=== PATIENT | female | born 1985 | race Caucasian/White ===

== ENCOUNTER 2016-11-14 13:04 | Inpatient (IN) | payer MEDICAID, OTHER ==
[~2016-11-14] VITALS: Ht 154.9 cm; Wt 58.1 kg
[~2016-11-14 13:04] MED LIST: ALBU8HFA IH; LURA40 PO
[2016-11-14] MEDS ORDERED: AMOX1TAB15 PO (13:54)
[2016-11-14 14:16] LABS: BASOPHILS % (AUTO) 0.2 % (0.0-2.0); EOSINOPHILS % (AUTO) 2.8 % (1.0-6.0); HEMATOCRIT 36.8 % (36-46); HEMOGLOBIN 12.6 g/dL (12.0-16.0); LYMPHOCYTES % (AUTO) 25.6 % (22.0-44.0); MEAN CORPUSCULAR HEMOGLOBIN 29.9 pg (26.0-34.0); MEAN CORPUSCULAR HGB CONC 34.3 G/dL (31.0-37.0); MEAN CORPUSCULAR VOLUME 87 fL (80-100); MONOCYTES # (AUTO) 0.8 K/uL (0.1-1.0); MONOCYTES % (AUTO) 9.8 % (2.0-9.0); NEUTROPHILS # (AUTO) 4.7 K/uL (1.8-7.7); NEUTROPHILS % (AUTO) 61.6 % (40.0-70.0); PLATELET COUNT (AUTO) 171 K/uL (150-450); RED BLOOD CELL COUNT(AUTO) 4.22 MIL/uL (4.00-5.20); RED CELL DISTRIBUTION WIDTH 13.2 % (11.5-14.5); WHITE BLOOD COUNT (AUTO) 7.7 K/uL (4.5-11.0)
[2016-11-14 14:22] LABS: ANION GAP 9 mmol/L (8-16); CALCIUM, TOTAL 8.9 mg/dL (8.8-10.5); CARBON DIOXIDE 29 mmol/L (22-29); CHLORIDE 105 mmol/L (98-107); CREATININE 0.74 mg/dL (0.60-1.30); GLOMERULAR FILTR. RATE CALC > 60 mL/min (>60); POTASSIUM 3.5 mmol/L (3.5-5.1); SODIUM SERUM 143 mmol/L (136-145); UREA NITROGEN, BLOOD 10 mg/dL (7-18)
[2016-11-14 14:28] LABS: ALANINE AMINOTRANSFERASE 28 U/L (12-78); ALBUMIN 3.8 g/dL (3.4-5.0); ASPARTATE AMINOTRANSFERASE 23 U/L (15-37); BILIRUBIN,TOTAL 0.2 mg/dL (0.1-1.0); TOTAL PROTEIN, SERUM 7.2 g/dL (6.4-8.2)
[2016-11-14] MEDS ORDERED: ZOLPIDEM TARTRATE 10 MG TABLET PO PRN (18:00)
[2016-11-14] MEDS ORDERED: HALOPERIDOL 5 MG TABLET PO PRN (18:00)
[2016-11-14] MEDS ORDERED: LORazepam 2 MG TABLET PO PRN (18:00)
[2016-11-14 18:28] LABS: CHOL/HDL RATIO 2.5 (3.9-5.7)
[2016-11-14] MEDS ORDERED: HALOPERIDOL LACTATE 5 MG/ML VIAL IM ONE (22:30)
[2016-11-14] MEDS ORDERED: LORazepam 2 MG/ML VIAL IM ONE (22:30)
[2016-11-14] MEDS ORDERED: DiphenhydrAMINE HCL 50 MG/ML VIAL IM ONE ×2 (22:30)
[2016-11-15 16:30] VITALS: BP 150/94
[2016-11-15 17:15] VITALS: BP 122/76
[2016-11-15] MEDS ORDERED: ALBUTEROL SULFATE HFA 90 MCG/PUFF 8 GM INHALER IH PRN (17:30)
[2016-11-15] MEDS ORDERED: PNEUMOCOCCAL VACCINE POLYVALENT 0.5 ML VIAL [PPSV23] IM ONE (18:00)
[2016-11-16 07:09] VITALS: BP 125/68
[2016-11-16 08:07] VITALS: BP 129/84
[2016-11-16 16:16] VITALS: BP 112/65
[2016-11-16] MEDS: OLANZapine 7.5 MG TABLET PO SCH (20:13)
[2016-11-17 06:40] VITALS: BP 128/74
[2016-11-17 08:41] VITALS: BP 128/72
[2016-11-17] MEDS: DIVALPROEX SODIUM 500 MG DR TABLET PO SCH ×2 (08:41→16:02)
[2016-11-17 16:00] VITALS: BP 116/73
[2016-11-17] MEDS: OLANZapine 7.5 MG TABLET PO SCH (20:11)
[2016-11-18 06:40] VITALS: BP 119/80
[2016-11-18 08:03] VITALS: BP 125/78
[2016-11-18] MEDS ORDERED: DIVA500T35 PO (08:26)
[2016-11-18] MEDS ORDERED: OLAN7.5T2 PO (08:26)
[2016-11-18] MEDS: DIVALPROEX SODIUM 500 MG DR TABLET PO SCH (08:50)
== END 2016-11-18 11:55 | disposition home or self-care (01) | DRG 750 ==
LOC: EMS 13:06 → B3A 11-15 14:59
PROVIDERS: ADMIT Psychiatry & Neurology Psychiatry; ATTEND Psychiatry & Neurology Psychiatry
DX: F25.9 Schizoaffective disorder, unspecified (principal); J45.909 Unspecified asthma, uncomplicated; K02.9 Dental caries, unspecified; Z79.899 Other long term (current) drug therapy; Z28.21 Immunization not carried out because of patient refusal
CPT/HCPCS: 87081; 96372; 99285; G0480; J1200; J1630; J2060

== ENCOUNTER 2016-11-24 23:30 | Emergency (ER) | payer MEDICAID, OTHER ==
[~2016-11-24] VITALS: Ht 154.9 cm; Wt 59.0 kg
[~2016-11-24 23:30] MED LIST changes: -ALBU8HFA IH; +DIVA500T35 PO; -LURA40 PO; +OLAN7.5T2 PO
[2016-11-25 00:02] LABS: BASOPHILS # (AUTO) 0.02 K/uL (0.00-0.20); BASOPHILS % (AUTO) 0.2 % (0.0-2.0); EOSINOPHILS % (AUTO) 2.45 % (1.0-6.0); HEMATOCRIT 35.8 % (36-46); HEMOGLOBIN 12.1 g/dL (12.0-16.0); LYMPHOCYTES # (AUTO) 1.8 K/uL (1.0-4.8); LYMPHOCYTES % (AUTO) 15.1 % (22.0-44.0); MEAN CORPUSCULAR HGB CONC 33.7 G/dL (31.0-37.0); MEAN CORPUSCULAR VOLUME 89 fL (80-100); MONOCYTES # (AUTO) 0.8 K/uL (0.1-1.0); MONOCYTES % (AUTO) 6.5 % (2.0-9.0); NEUTROPHILS # (AUTO) 9.2 K/uL (1.8-7.7); NEUTROPHILS % (AUTO) 75.8 % (40.0-70.0); PLATELET COUNT (AUTO) 145 K/uL (150-450); RED BLOOD CELL COUNT(AUTO) 4.02 MIL/uL (4.00-5.20); RED CELL DISTRIBUTION WIDTH 13.2 % (11.5-14.5); WHITE BLOOD COUNT (AUTO) 12.2 K/uL (4.5-11.0)
[2016-11-25 00:11] LABS: ANION GAP 11 mmol/L (8-16); CALCIUM, TOTAL 8.7 mg/dL (8.8-10.5); CARBON DIOXIDE 26 mmol/L (22-29); CHLORIDE 106 mmol/L (98-107); CREATININE 0.81 mg/dL (0.60-1.30); GLOMERULAR FILTR. RATE CALC > 60 mL/min (>60); POTASSIUM 3.8 mmol/L (3.5-5.1); SODIUM SERUM 143 mmol/L (136-145); UREA NITROGEN, BLOOD 8 mg/dL (7-18)
[2016-11-25 00:17] LABS: ALANINE AMINOTRANSFERASE 21 U/L (12-78); ALBUMIN 3.5 g/dL (3.4-5.0); ASPARTATE AMINOTRANSFERASE 19 U/L (15-37); BILIRUBIN,TOTAL 0.2 mg/dL (0.1-1.0); TOTAL PROTEIN, SERUM 7.5 g/dL (6.4-8.2)
[2016-11-25 08:48] VITALS: BP 118/68
[2016-11-25] MEDS ORDERED: ALBU0.212 IH (17:24)
== END 2016-11-25 09:00 | disposition home or self-care (01) ==
LOC: EMS 23:32
DX: F25.9 Schizoaffective disorder, unspecified (principal); J40 Bronchitis, not specified as acute or chronic
CPT/HCPCS: 36415; 71010; 80053; 80307; 84703; 85025; 99285; G0480

== ENCOUNTER 2017-12-19 15:03 | Inpatient (IN) | payer MEDICAID, OTHER ==
[~2017-12-19] VITALS: Ht 154.9 cm; Wt 65.5 kg
[~2017-12-19 15:03] MED LIST changes: -DIVA500T35 PO
[2017-12-19] MEDS ORDERED: LITH300C3 PO (15:14)
[2017-12-19] MEDS ORDERED: RISP.5 PO (15:14)
[2017-12-19] MEDS ORDERED: KETOROLAC TROMETHAMINE 30 MG/ML VIAL IVP ONE (15:45)
[2017-12-19] MEDS ORDERED: METOCLOPRAMIDE HCL 5 MG/ML 2 ML VIAL IVP ONE (15:45)
[2017-12-19] MEDS ORDERED: DiphenhydrAMINE HCL 50 MG/ML VIAL IVP ONE (15:45)
[2017-12-19] MEDS ORDERED: SODIUM CHLORIDE 0.9% 1,000 ML IV ONE (15:45)
[2017-12-19] MEDS ORDERED: OLANZapine 5 MG TABLET PO ONE (17:45)
[2017-12-19] MEDS ORDERED: OLAN10TA3 PO (17:49)
[2017-12-19 18:48] LABS: BASOPHILS % (AUTO) 0.6 % (0.0-2.0); EOSINOPHILS % (AUTO) 1.3 % (1.0-6.0); HEMATOCRIT 36.1 % (36-46); HEMOGLOBIN 12.3 g/dL (12.0-16.0); LYMPHOCYTES # (AUTO) 2.1 K/uL (1.0-4.8); LYMPHOCYTES % (AUTO) 25.7 % (22.0-44.0); MEAN CORPUSCULAR HEMOGLOBIN 29.4 pg (26.0-34.0); MEAN CORPUSCULAR VOLUME 86 fL (80-100); MONOCYTES # (AUTO) 0.6 K/uL (0.1-1.0); MONOCYTES % (AUTO) 6.8 % (2.0-9.0); NEUTROPHILS # (AUTO) 5.5 K/uL (1.8-7.7); NEUTROPHILS % (AUTO) 65.6 % (40.0-70.0); PLATELET COUNT (AUTO) 194 K/uL (150-450); RED BLOOD CELL COUNT(AUTO) 4.18 MIL/uL (4.00-5.20); RED CELL DISTRIBUTION WIDTH 13.1 % (11.5-14.5)
[2017-12-19 19:29] LABS: ANION GAP 10 mmol/L (8-16); CALCIUM, TOTAL 8.9 mg/dL (8.8-10.5); CARBON DIOXIDE 25 mmol/L (22-29); CHLORIDE 106 mmol/L (98-107); CREATININE 0.85 mg/dL (0.60-1.30); GLOMERULAR FILTR. RATE CALC > 60 mL/min (>60); GLUCOSE,RANDOM 101 mg/dL (70-110); POTASSIUM 3.4 mmol/L (3.5-5.1); SODIUM SERUM 141 mmol/L (136-145); UREA NITROGEN, BLOOD 5 mg/dL (7-18)
[2017-12-19 19:34] LABS: ALANINE AMINOTRANSFERASE 21 U/L (12-78); ALBUMIN 3.8 g/dL (3.4-5.0); ALKALINE PHOSPHATASE 49 U/L (46-116); ASPARTATE AMINOTRANSFERASE 18 U/L (15-37); BILIRUBIN,TOTAL 0.3 mg/dL (0.1-1.0); TOTAL PROTEIN, SERUM 7.3 g/dL (6.4-8.2)
[2017-12-19 20:35] VITALS: BP 130/85
[2017-12-19] MEDS ORDERED: BENZOCAINE/MENTHOL LOZENGE MM PRN (21:00)
[2017-12-19] MEDS ORDERED: ALBUTEROL SULFATE HFA 90 MCG/PUFF 8 GM INHALER IH PRN (21:00)
[2017-12-19] MEDS ORDERED: BACITRACIN 28.4 GM OINTMENT TP PRN (21:00)
[2017-12-19] MEDS ORDERED: ONDANSETRON HCL 4 MG TABLET PO PRN (21:00)
[2017-12-19] MEDS ORDERED: MAG HYDROX/AL HYDROX/SIMETH ES 30 ML SUSPENSION UDCUP PO PRN (21:00)
[2017-12-19] MEDS ORDERED: POTASSIUM CHLORIDE 20 MEQ ER TABLET PO ONE (21:00)
[2017-12-19] MEDS ORDERED: LOPERAMIDE HCL 2 MG CAPSULE PO PRN (21:00)
[2017-12-19] MEDS ORDERED: ACETAMINOPHEN 325 MG TABLET PO PRN (21:00)
[2017-12-19] MEDS ORDERED: MAGNESIUM HYDROXIDE SUSPENSION 30 ML UDCUP PO PRN (21:00)
[2017-12-19] MEDS ORDERED: CloNIDine HCL 0.1 MG TABLET PO PRN (21:00)
[2017-12-19] MEDS: ZOLPIDEM TARTRATE 10 MG TABLET PO PRN (21:17)
[2017-12-20 06:50] VITALS: BP 136/91
[2017-12-20 08:21] LABS: CHOL/HDL RATIO 3.1 (3.9-5.7); POTASSIUM 3.5 mmol/L (3.5-5.1)
[2017-12-20 08:26] VITALS: BP 126/83
[2017-12-20] MEDS ORDERED: OMEPRAZOLE 20 MG CAPSULE PO SCH (09:00)
[2017-12-20] MEDS ORDERED: DOCUSATE SODIUM 100 MG CAPSULE PO PRN (09:00)
[2017-12-20] MEDS ORDERED: DOCUSATE SODIUM 100 MG CAPSULE PO SCH (09:00)
[2017-12-20] MEDS: HALOPERIDOL 5 MG TABLET PO PRN ×2 (09:29→16:37)
[2017-12-20] MEDS: LORazepam 2 MG TABLET PO PRN ×2 (09:29→16:37)
[2017-12-20 16:11] VITALS: BP 112/76
[2017-12-20] MEDS: ZOLPIDEM TARTRATE 10 MG TABLET PO PRN (20:46)
[2017-12-20] MEDS: OLANZapine 10 MG TABLET PO SCH (20:47)
[2017-12-21 06:45] VITALS: BP 126/88
[2017-12-21 08:54] VITALS: BP 125/76
[2017-12-21] MEDS: IBUPROFEN 600 MG TABLET PO PRN (09:10)
[2017-12-21] MEDS: LITHIUM CARBONATE 300 MG CAPSULE PO SCH ×2 (09:11→17:15)
[2017-12-21] MEDS: LORazepam 2 MG TABLET PO PRN (15:16)
[2017-12-21 16:18] VITALS: BP 131/70
[2017-12-21] MEDS: OLANZapine 10 MG TABLET PO SCH (21:05)
[2017-12-22 06:51] VITALS: BP 109/72
[2017-12-22 08:15] VITALS: BP 130/76
[2017-12-22] MEDS: LITHIUM CARBONATE 300 MG CAPSULE PO SCH ×2 (08:16→16:49)
[2017-12-22] MEDS: LORazepam 2 MG TABLET PO PRN (08:19)
[2017-12-22 16:00] VITALS: BP 123/83
[2017-12-22] MEDS: OLANZapine 10 MG TABLET PO SCH (20:53)
[2017-12-23] MEDS ORDERED: PNEUMOCOCCAL VACCINE POLYVALENT 0.5 ML VIAL [PPSV23] IM ONE (07:30)
[2017-12-23 08:21] VITALS: BP 117/69
[2017-12-23] MEDS: LITHIUM CARBONATE 300 MG CAPSULE PO SCH ×2 (08:57→16:51)
[2017-12-23] MEDS: LORazepam 2 MG TABLET PO PRN ×2 (09:58→16:51)
[2017-12-23 16:26] VITALS: BP 121/76
[2017-12-23] MEDS: HALOPERIDOL 5 MG TABLET PO PRN (16:51)
[2017-12-23] MEDS: OLANZapine 10 MG TABLET PO SCH (20:34)
[2017-12-23] MEDS: ZOLPIDEM TARTRATE 10 MG TABLET PO PRN (21:41)
[2017-12-24] MEDS: LITHIUM CARBONATE 300 MG CAPSULE PO SCH ×2 (08:26→16:53)
[2017-12-24] MEDS: LORazepam 2 MG TABLET PO PRN ×2 (10:24→16:53)
[2017-12-24 16:12] VITALS: BP 122/86
[2017-12-24] MEDS: HALOPERIDOL 5 MG TABLET PO PRN (16:53)
[2017-12-24] MEDS: OLANZapine 10 MG TABLET PO SCH (20:38)
[2017-12-24] MEDS: ZOLPIDEM TARTRATE 10 MG TABLET PO PRN (21:30)
[2017-12-25 05:50] VITALS: BP 113/70
[2017-12-25 08:15] VITALS: BP 124/83
[2017-12-25] MEDS: LITHIUM CARBONATE 300 MG CAPSULE PO SCH ×2 (08:29→16:43)
[2017-12-25 16:20] VITALS: BP 133/74
[2017-12-25] MEDS: OLANZapine 10 MG TABLET PO SCH (20:46)
[2017-12-25] MEDS: ZOLPIDEM TARTRATE 10 MG TABLET PO PRN (20:46)
[2017-12-26 08:15] VITALS: BP 134/79
[2017-12-26] MEDS: LORazepam 2 MG TABLET PO PRN (08:27)
[2017-12-26] MEDS: LITHIUM CARBONATE 300 MG CAPSULE PO SCH ×2 (08:27→16:11)
[2017-12-26 16:09] VITALS: BP 109/66
[2017-12-26] MEDS: OLANZapine 10 MG TABLET PO SCH (20:06)
[2017-12-27 06:51] VITALS: BP 113/71
[2017-12-27 08:39] VITALS: BP 143/89
[2017-12-27] MEDS: LITHIUM CARBONATE 300 MG CAPSULE PO SCH ×2 (08:51→16:43)
[2017-12-27] MEDS: IBUPROFEN 600 MG TABLET PO PRN ×2 (10:30→12:22)
[2017-12-27 16:11] VITALS: BP 132/80
[2017-12-27] MEDS: OLANZapine 10 MG TABLET PO SCH (20:41)
[2017-12-28 00:10] VITALS: BP 122/89
[2017-12-28] MEDS: LORazepam 2 MG TABLET PO PRN (00:38)
[2017-12-28] MEDS: ZOLPIDEM TARTRATE 10 MG TABLET PO PRN (00:38)
[2017-12-28] MEDS: LITHIUM CARBONATE 300 MG CAPSULE PO SCH (08:25)
[2017-12-28 08:27] VITALS: BP 138/71
== END 2017-12-28 12:33 | disposition home or self-care (01) | DRG 750 ==
LOC: EMS 15:04 → B2S 18:51 → B3A 20:12
PROVIDERS: ADMIT Psychiatry & Neurology Psychiatry; ATTEND Psychiatry & Neurology Psychiatry
DX: F25.0 Schizoaffective disorder, bipolar type (principal); R45.851 Suicidal ideations; F17.210 Nicotine dependence, cigarettes, uncomplicated; G47.00 Insomnia, unspecified; I10 Essential (primary) hypertension; J45.909 Unspecified asthma, uncomplicated; G43.909 Migraine, unspecified, not intractable, without status migrainosus; K59.00 Constipation, unspecified; R73.9 Hyperglycemia, unspecified
CPT/HCPCS: 84132; 90686; 90732; 96361; 96374; 96375; 99285; G0480; J1200; J1885; J2765; J7030

== ENCOUNTER 2018-01-30 23:43 | Inpatient (IN) | payer MEDICAID ==
[~2018-01-30] VITALS: Ht 154.9 cm; Wt 65.5 kg
[~2018-01-30 23:43] MED LIST changes: +LITH300C3 PO; +OLAN10TA3 PO; -OLAN7.5T2 PO
[2018-01-31 01:09] VITALS: BP 122/91
[2018-01-31] MEDS ORDERED: RISP.5 PO (01:09)
[2018-01-31] MEDS ORDERED: HALOPERIDOL 5 MG TABLET PO PRN (01:30)
[2018-01-31] MEDS ORDERED: ZOLPIDEM TARTRATE 10 MG TABLET PO PRN (01:30)
[2018-01-31 02:26] VITALS: BP 134/99
[2018-01-31 08:05] VITALS: BP 121/69
[2018-01-31] MEDS ORDERED: IBUPROFEN 600 MG TABLET PO PRN (08:15)
[2018-01-31] MEDS ORDERED: BACITRACIN 28.4 GM OINTMENT TP PRN (08:15)
[2018-01-31] MEDS ORDERED: MAGNESIUM HYDROXIDE SUSPENSION 30 ML UDCUP PO PRN (08:15)
[2018-01-31] MEDS ORDERED: ONDANSETRON HCL 4 MG TABLET PO PRN (08:15)
[2018-01-31] MEDS ORDERED: MAG HYDROX/AL HYDROX/SIMETH ES 30 ML SUSPENSION UDCUP PO PRN (08:15)
[2018-01-31] MEDS ORDERED: ACETAMINOPHEN 325 MG TABLET PO PRN (08:15)
[2018-01-31] MEDS ORDERED: LOPERAMIDE HCL 2 MG CAPSULE PO PRN (08:15)
[2018-01-31] MEDS ORDERED: CloNIDine HCL 0.1 MG TABLET PO PRN (08:15)
[2018-01-31] MEDS ORDERED: ALBUTEROL SULFATE HFA 90 MCG/PUFF 8 GM INHALER IH PRN (08:15)
[2018-01-31] MEDS ORDERED: BENZOCAINE/MENTHOL LOZENGE MM PRN (08:15)
[2018-01-31] MEDS ORDERED: PETROLATUM,WHITE 71 GM JELLY TP PRN (08:15)
[2018-01-31 08:50] LABS: HEMOGLOBIN 13.6 g/dL (12.0-16.0); LYMPHOCYTES # (AUTO) 2.2 K/uL (1.0-4.8); LYMPHOCYTES % (AUTO) 26.2 % (22.0-44.0); MEAN CORPUSCULAR HEMOGLOBIN 30.5 pg (26.0-34.0); MEAN CORPUSCULAR HGB CONC 35.8 G/dL (31.0-37.0); MEAN CORPUSCULAR VOLUME 85 fL (80-100); MONOCYTES # (AUTO) 0.5 K/uL (0.1-1.0); MONOCYTES % (AUTO) 6.2 % (2.0-9.0); NEUTROPHILS # (AUTO) 5.4 K/uL (1.8-7.7); NEUTROPHILS % (AUTO) 63.6 % (40.0-70.0); PLATELET COUNT (AUTO) 258 K/uL (150-450); RED BLOOD CELL COUNT(AUTO) 4.47 MIL/uL (4.00-5.20); RED CELL DISTRIBUTION WIDTH 13.1 % (11.5-14.5)
[2018-01-31 09:01] LABS: HEMOGLOBIN A1C 5.2 % (4.5-6.2)
[2018-01-31] MEDS: OMEPRAZOLE 20 MG CAPSULE PO SCH (09:39)
[2018-01-31] MEDS: LORazepam 2 MG TABLET PO PRN ×2 (09:39→17:11)
[2018-01-31] MEDS: DOCUSATE SODIUM 100 MG CAPSULE PO SCH (09:39)
[2018-01-31 10:16] LABS: ALANINE AMINOTRANSFERASE 35 U/L (12-78); ALBUMIN 4.2 g/dL (3.4-5.0); ALKALINE PHOSPHATASE 64 U/L (46-116); ANION GAP 11 mmol/L (8-16); ASPARTATE AMINOTRANSFERASE 23 U/L (15-37); BILIRUBIN,TOTAL 0.4 mg/dL (0.1-1.0); CALCIUM, TOTAL 8.8 mg/dL (8.8-10.5); CARBON DIOXIDE 27 mmol/L (22-29); CHLORIDE 102 mmol/L (98-107); CHOL/HDL RATIO 3.1 (3.9-5.7); CHOLESTEROL 170 mg/dL (131-200); CREATININE 0.86 mg/dL (0.60-1.30); FREE T4 (FREE THYROXINE) 1.07 ng/dL (0.76-1.46); GLOMERULAR FILTR. RATE CALC > 60 mL/min (>60); GLUCOSE,RANDOM 106 mg/dL (70-110); HCG,QUANTITATIVE < 1 mIU/mL (0-6); HDL CHOLESTEROL 54 mg/dL (40-60); LDL CHOL (CALC.) 97 mg/dL (0-130); POTASSIUM 3.3 mmol/L (3.5-5.1); SODIUM SERUM 140 mmol/L (136-145); THYROID STIMULATING HORMONE 2.58 uIU/mL (0.36-3.74); TOTAL PROTEIN, SERUM 8.1 g/dL (6.4-8.2); TRIGLYCERIDES 93 mg/dL (15-150)
[2018-01-31 10:23] LABS: UREA NITROGEN, BLOOD 9 mg/dL (7-18)
[2018-01-31] MEDS ORDERED: POTASSIUM CHLORIDE 20 MEQ ER TABLET PO ONE (10:30)
[2018-01-31 16:38] VITALS: BP 108/76
[2018-01-31] MEDS: OLANZapine 7.5 MG TABLET PO SCH (21:31)
[2018-02-01 06:22] VITALS: BP 120/73
[2018-02-01] MEDS: LORazepam 2 MG TABLET PO PRN (08:49)
[2018-02-01] MEDS: LITHIUM CARBONATE 300 MG CAPSULE PO SCH ×2 (08:49→16:40)
[2018-02-01] MEDS: OMEPRAZOLE 20 MG CAPSULE PO SCH (08:49)
[2018-02-01] MEDS: DOCUSATE SODIUM 100 MG CAPSULE PO SCH (08:49)
[2018-02-01 08:58] LABS: ANION GAP 8 mmol/L (8-16); CALCIUM, TOTAL 8.4 mg/dL (8.8-10.5); CARBON DIOXIDE 29 mmol/L (22-29); CHLORIDE 103 mmol/L (98-107); CREATININE 0.83 mg/dL (0.60-1.30); GLOMERULAR FILTR. RATE CALC > 60 mL/min (>60); GLUCOSE,RANDOM 88 mg/dL (70-110); POTASSIUM 3.8 mmol/L (3.5-5.1); SODIUM SERUM 140 mmol/L (136-145); UREA NITROGEN, BLOOD 11 mg/dL (7-18)
[2018-02-01 17:42] VITALS: BP 107/77
[2018-02-01] MEDS: OLANZapine 7.5 MG TABLET PO SCH (21:01)
[2018-02-02] MEDS: DOCUSATE SODIUM 100 MG CAPSULE PO SCH (08:10)
[2018-02-02] MEDS: LITHIUM CARBONATE 300 MG CAPSULE PO SCH ×2 (08:10→16:10)
[2018-02-02] MEDS: OMEPRAZOLE 20 MG CAPSULE PO SCH (08:14)
[2018-02-02] MEDS: LORazepam 2 MG TABLET PO PRN ×2 (08:15→16:10)
[2018-02-02 08:16] VITALS: BP 119/76
[2018-02-02 16:02] VITALS: BP 102/70
[2018-02-02] MEDS: OLANZapine 7.5 MG TABLET PO SCH (20:33)
[2018-02-03 08:02] VITALS: BP 128/82
[2018-02-03] MEDS: OMEPRAZOLE 20 MG CAPSULE PO SCH (08:36)
[2018-02-03] MEDS: LITHIUM CARBONATE 300 MG CAPSULE PO SCH ×2 (08:36→16:20)
[2018-02-03] MEDS: DOCUSATE SODIUM 100 MG CAPSULE PO SCH (08:37)
[2018-02-03] MEDS: LORazepam 2 MG TABLET PO PRN (08:39)
[2018-02-03] MEDS ORDERED: FLUCONAZOLE 150 MG TABLET PO ONE (12:15)
[2018-02-03 16:06] VITALS: BP 119/69
[2018-02-03] MEDS: OLANZapine 7.5 MG TABLET PO SCH (20:02)
[2018-02-04 08:09] VITALS: BP 112/69
[2018-02-04] MEDS: DOCUSATE SODIUM 100 MG CAPSULE PO SCH (08:57)
[2018-02-04] MEDS: LITHIUM CARBONATE 300 MG CAPSULE PO SCH ×2 (08:57→16:07)
[2018-02-04] MEDS: OMEPRAZOLE 20 MG CAPSULE PO SCH (08:57)
[2018-02-04 16:04] VITALS: BP 126/83
[2018-02-04] MEDS: LORazepam 2 MG TABLET PO PRN (16:07)
[2018-02-04] MEDS: OLANZapine 7.5 MG TABLET PO SCH (20:22)
[2018-02-05 07:00] VITALS: BP 125/80
[2018-02-05 08:12] VITALS: BP 111/71
[2018-02-05] MEDS: LORazepam 2 MG TABLET PO PRN (08:38)
[2018-02-05] MEDS: DOCUSATE SODIUM 100 MG CAPSULE PO SCH (08:38)
[2018-02-05] MEDS: LITHIUM CARBONATE 300 MG CAPSULE PO SCH ×2 (08:38→16:15)
[2018-02-05] MEDS: OMEPRAZOLE 20 MG CAPSULE PO SCH (08:39)
[2018-02-05] MEDS ORDERED: FLUCONAZOLE 150 MG TABLET PO ONE (12:15)
[2018-02-05 16:18] VITALS: BP 112/76
[2018-02-05] MEDS: OLANZapine 7.5 MG TABLET PO SCH (20:26)
[2018-02-06 00:40] VITALS: BP 114/62
[2018-02-06 08:18] VITALS: BP 101/74
[2018-02-06] MEDS: DOCUSATE SODIUM 100 MG CAPSULE PO SCH (08:20)
[2018-02-06] MEDS: LITHIUM CARBONATE 300 MG CAPSULE PO SCH ×2 (08:20→16:20)
[2018-02-06] MEDS: OMEPRAZOLE 20 MG CAPSULE PO SCH (08:20)
[2018-02-06 16:06] VITALS: BP 109/70
[2018-02-06] MEDS: OLANZapine 7.5 MG TABLET PO SCH (20:37)
[2018-02-07 02:20] VITALS: BP 106/63
[2018-02-07 08:19] VITALS: BP 107/67
[2018-02-07] MEDS: LITHIUM CARBONATE 300 MG CAPSULE PO SCH ×2 (08:24→16:27)
[2018-02-07] MEDS: OMEPRAZOLE 20 MG CAPSULE PO SCH (08:24)
[2018-02-07] MEDS: DOCUSATE SODIUM 100 MG CAPSULE PO SCH (08:24)
[2018-02-07 16:11] VITALS: BP 127/78
== END 2018-02-07 18:08 | disposition home or self-care (01) | DRG 750 ==
LOC: B3A 01-31 01:15 → B2S 02-05 13:07
PROVIDERS: ADMIT Psychiatry & Neurology Psychiatry; ATTEND Psychiatry & Neurology Psychiatry
DX: F25.9 Schizoaffective disorder, unspecified (principal); B37.3 Candidiasis of vulva and vagina; E87.6 Hypokalemia; G47.00 Insomnia, unspecified; J45.909 Unspecified asthma, uncomplicated; I10 Essential (primary) hypertension; K59.00 Constipation, unspecified; Z56.0 Unemployment, unspecified
CPT/HCPCS: 83036; 84439; 84443

== ENCOUNTER 2018-05-11 11:25 | Inpatient (IN) | payer MEDICAID ==
[~2018-05-11] VITALS: Ht 154.9 cm; Wt 67.1 kg
[2018-05-11 11:34] VITALS: BP 127/76
[2018-05-11] MEDS ORDERED: RISP2 PO (12:14)
[2018-05-11 13:35] VITALS: BP 134/83
[2018-05-11] MEDS: RisperiDONE 2 MG TABLET PO SCH (16:29)
[2018-05-11] MEDS: LITHIUM CARBONATE 300 MG CAPSULE PO SCH (16:29)
[2018-05-11] MEDS: HALOPERIDOL 5 MG TABLET PO PRN (18:28)
[2018-05-11 20:07] VITALS: BP 127/82
[2018-05-12 05:58] VITALS: BP 116/85
[2018-05-12 08:34] VITALS: BP 122/84
[2018-05-12 08:39] LABS: BASOPHILS % (AUTO) 0.5 % (0.0-2.0); EOSINOPHILS % (AUTO) 2.7 % (1.0-6.0); HEMATOCRIT 38.5 % (36-46); HEMOGLOBIN 13.2 g/dL (12.0-16.0); LYMPHOCYTES # (AUTO) 1.7 K/uL (1.0-4.8); LYMPHOCYTES % (AUTO) 24.6 % (22.0-44.0); MEAN CORPUSCULAR HEMOGLOBIN 28.8 pg (26.0-34.0); MEAN CORPUSCULAR HGB CONC 34.2 G/dL (31.0-37.0); MEAN CORPUSCULAR VOLUME 84 fL (80-100); MONOCYTES # (AUTO) 0.4 K/uL (0.1-1.0); MONOCYTES % (AUTO) 6.4 % (2.0-9.0); NEUTROPHILS # (AUTO) 4.4 K/uL (1.8-7.7); NEUTROPHILS % (AUTO) 65.8 % (40.0-70.0); PLATELET COUNT (AUTO) 183 K/uL (150-450); RED BLOOD CELL COUNT(AUTO) 4.57 MIL/uL (4.00-5.20); RED CELL DISTRIBUTION WIDTH 13.1 % (11.5-14.5)
[2018-05-12 08:47] LABS: HEMOGLOBIN A1C 5.4 % (4.5-6.2)
[2018-05-12 09:14] LABS: AMPHET/METH SCREEN,URINE NEGATIVE (NEGATIVE); BARBITURATE SCREEN, URINE NEGATIVE (NEGATIVE); BENZODIAZEPINES SCREEN,URINE NEGATIVE (NEGATIVE); CANNABINOID SCREEN,URINE NEGATIVE (NEGATIVE); COCAINE SCREEN,URINE NEGATIVE (NEGATIVE); METHADONE SCREEN, URINE NEGATIVE (NEGATIVE); OPIATE SCREEN,URINE NEGATIVE (NEGATIVE)
[2018-05-12 09:16] LABS: PHENCYCLIDINE SCREEN,URINE NEGATIVE (NEGATIVE)
[2018-05-12 09:18] LABS: ALANINE AMINOTRANSFERASE 40 U/L (12-78); ALKALINE PHOSPHATASE 55 U/L (46-116); ANION GAP 10 mmol/L (8-16); ASPARTATE AMINOTRANSFERASE 25 U/L (15-37); BILIRUBIN,TOTAL 0.5 mg/dL (0.1-1.0); CARBON DIOXIDE 25 mmol/L (22-29); CHLORIDE 104 mmol/L (98-107); CHOL/HDL RATIO 2.8 (3.9-5.7); CHOLESTEROL 133 mg/dL (131-200); FREE T4 (FREE THYROXINE) 1.14 ng/dL (0.76-1.46); GLOMERULAR FILTR. RATE CALC > 60 mL/min (>60); GLUCOSE,RANDOM 83 mg/dL (70-110); HCG,QUANTITATIVE < 1 mIU/mL (0-6); HDL CHOLESTEROL 47 mg/dL (40-60); LDL CHOL (CALC.) 74 mg/dL (0-130); POTASSIUM 3.9 mmol/L (3.5-5.1); SODIUM SERUM 139 mmol/L (136-145); THYROID STIMULATING HORMONE 1.28 uIU/mL (0.36-3.74); TRIGLYCERIDES 60 mg/dL (15-150); UREA NITROGEN, BLOOD 10 mg/dL (7-18)
[2018-05-12 09:26] LABS: BILIRUBIN,URINE NEGATIVE (NEGATIVE); GLUCOSE, URINE (UA) NEGATIVE (NEGATIVE); KETONES,URINE >=80 mg/dL (NEGATIVE); LEUKOCYTE ESTERASE ,URINE NEGATIVE (NEGATIVE); NITRATE,URINE NEGATIVE (NEGATIVE); OCCULT BLOOD,URINE NEGATIVE (NEGATIVE); PROTEIN,URINE TRACE (NEGATIVE)
[2018-05-12] MEDS: LORazepam 2 MG TABLET PO PRN (09:26)
[2018-05-12] MEDS: RisperiDONE 2 MG TABLET PO SCH ×2 (09:27→17:05)
[2018-05-12] MEDS: LITHIUM CARBONATE 300 MG CAPSULE PO SCH ×2 (09:27→17:05)
[2018-05-12 09:36] LABS: APPEARANCE,URINE HAZY (CLEAR)
[2018-05-12] MEDS ORDERED: ONDANSETRON HCL 4 MG TABLET PO PRN (10:30)
[2018-05-12] MEDS ORDERED: IBUPROFEN 600 MG TABLET PO PRN (10:30)
[2018-05-12] MEDS ORDERED: LOPERAMIDE HCL 2 MG CAPSULE PO PRN (10:30)
[2018-05-12] MEDS ORDERED: PETROLATUM,WHITE 71 GM JELLY TP PRN (10:30)
[2018-05-12] MEDS ORDERED: CloNIDine HCL 0.1 MG TABLET PO PRN (10:30)
[2018-05-12] MEDS ORDERED: BACITRACIN 28.4 GM OINTMENT TP PRN (10:30)
[2018-05-12] MEDS ORDERED: ACETAMINOPHEN 325 MG TABLET PO PRN (10:30)
[2018-05-12] MEDS ORDERED: BENZOCAINE/MENTHOL LOZENGE MM PRN (10:30)
[2018-05-12] MEDS ORDERED: MAG HYDROX/AL HYDROX/SIMETH ES 30 ML SUSPENSION UDCUP PO PRN (10:30)
[2018-05-12] MEDS ORDERED: ALBUTEROL SULFATE HFA 90 MCG/PUFF 8 GM INHALER IH PRN (10:30)
[2018-05-12] MEDS ORDERED: MAGNESIUM HYDROXIDE SUSPENSION 30 ML UDCUP PO PRN (10:30)
[2018-05-12 16:17] VITALS: BP 124/72
[2018-05-12] MEDS: HALOPERIDOL 5 MG TABLET PO PRN (17:05)
[2018-05-13] MEDS: LORazepam 2 MG TABLET PO PRN ×2 (03:19→16:47)
[2018-05-13 03:20] VITALS: BP 107/89
[2018-05-13 08:23] VITALS: BP 127/82
[2018-05-13] MEDS: OMEPRAZOLE 20 MG CAPSULE PO SCH (09:16)
[2018-05-13] MEDS: DOCUSATE SODIUM 100 MG CAPSULE PO SCH (09:16)
[2018-05-13] MEDS: LITHIUM CARBONATE 300 MG CAPSULE PO SCH ×2 (09:16→16:46)
[2018-05-13] MEDS: RisperiDONE 2 MG TABLET PO SCH ×2 (09:16→16:46)
[2018-05-13 16:28] VITALS: BP 116/69
[2018-05-13] MEDS: HALOPERIDOL 5 MG TABLET PO PRN (16:47)
[2018-05-14 06:28] VITALS: BP 129/87
[2018-05-14 08:21] VITALS: BP 131/83
[2018-05-14] MEDS: RisperiDONE 2 MG TABLET PO SCH ×2 (09:16→17:06)
[2018-05-14] MEDS: DOCUSATE SODIUM 100 MG CAPSULE PO SCH (09:16)
[2018-05-14] MEDS: LITHIUM CARBONATE 300 MG CAPSULE PO SCH ×2 (09:16→17:06)
[2018-05-14] MEDS: OMEPRAZOLE 20 MG CAPSULE PO SCH (09:16)
[2018-05-14] MEDS: LORazepam 2 MG TABLET PO PRN (09:17)
[2018-05-14 16:08] VITALS: BP 130/80
[2018-05-15] VITALS: BP 124/85
[2018-05-15 08:17] VITALS: BP 113/65
[2018-05-15] MEDS: DOCUSATE SODIUM 100 MG CAPSULE PO SCH (08:47)
[2018-05-15] MEDS: LITHIUM CARBONATE 300 MG CAPSULE PO SCH ×2 (08:47→17:38)
[2018-05-15] MEDS: RisperiDONE 2 MG TABLET PO SCH ×2 (08:47→17:38)
[2018-05-15] MEDS: LORazepam 2 MG TABLET PO PRN ×2 (08:47→17:38)
[2018-05-15] MEDS: OMEPRAZOLE 20 MG CAPSULE PO SCH (08:47)
[2018-05-15 16:14] VITALS: BP 112/74
[2018-05-15] MEDS: HALOPERIDOL 5 MG TABLET PO PRN (17:38)
[2018-05-16 03:15] VITALS: BP 113/82
[2018-05-16] MEDS: LORazepam 2 MG TABLET PO PRN (03:15)
[2018-05-16] MEDS: HALOPERIDOL 5 MG TABLET PO PRN (03:15)
[2018-05-16 08:32] VITALS: BP 106/63
[2018-05-16] MEDS: DOCUSATE SODIUM 100 MG CAPSULE PO SCH (08:51)
[2018-05-16] MEDS: RisperiDONE 2 MG TABLET PO SCH ×2 (08:51→16:41)
[2018-05-16] MEDS: OMEPRAZOLE 20 MG CAPSULE PO SCH (08:51)
[2018-05-16] MEDS: LITHIUM CARBONATE 300 MG CAPSULE PO SCH ×2 (08:51→16:41)
[2018-05-16 16:10] VITALS: BP 114/77
[2018-05-16] MEDS: ZOLPIDEM TARTRATE 10 MG TABLET PO PRN (20:23)
[2018-05-17] MEDS: LORazepam 2 MG TABLET PO PRN ×2 (04:24→16:11)
[2018-05-17 04:37] VITALS: BP 119/84
[2018-05-17 08:21] VITALS: BP 100/55
[2018-05-17] MEDS: LITHIUM CARBONATE 300 MG CAPSULE PO SCH ×2 (09:14→17:06)
[2018-05-17] MEDS: OMEPRAZOLE 20 MG CAPSULE PO SCH (09:14)
[2018-05-17] MEDS: RisperiDONE 2 MG TABLET PO SCH ×2 (09:14→17:06)
[2018-05-17] MEDS: DOCUSATE SODIUM 100 MG CAPSULE PO SCH (09:14)
[2018-05-17 16:32] VITALS: BP 110/68
[2018-05-17] MEDS: OLANZapine 7.5 MG TABLET PO SCH (20:39)
[2018-05-17] MEDS: ZOLPIDEM TARTRATE 10 MG TABLET PO PRN (21:36)
[2018-05-18 06:42] VITALS: BP 122/66
[2018-05-18 08:20] VITALS: BP 121/74
[2018-05-18] MEDS: DOCUSATE SODIUM 100 MG CAPSULE PO SCH (08:37)
[2018-05-18] MEDS: OMEPRAZOLE 20 MG CAPSULE PO SCH (08:37)
[2018-05-18] MEDS: RisperiDONE 2 MG TABLET PO SCH ×2 (08:37→16:53)
[2018-05-18] MEDS: LITHIUM CARBONATE 300 MG CAPSULE PO SCH ×2 (08:37→16:53)
[2018-05-18] MEDS ORDERED: MAGNESIUM CITRATE 300 ML ORAL SOLUTION PO ONE (14:30)
[2018-05-18 16:24] VITALS: BP 117/74
[2018-05-18] MEDS: LORazepam 2 MG TABLET PO PRN (16:53)
[2018-05-18] MEDS: OLANZapine 7.5 MG TABLET PO SCH (20:57)
[2018-05-18] MEDS: ZOLPIDEM TARTRATE 10 MG TABLET PO PRN (20:57)
[2018-05-19 06:41] VITALS: BP 110/72
[2018-05-19 08:17] VITALS: BP 100/59
[2018-05-19] MEDS: OMEPRAZOLE 20 MG CAPSULE PO SCH (08:27)
[2018-05-19] MEDS: LITHIUM CARBONATE 300 MG CAPSULE PO SCH ×2 (08:27→16:39)
[2018-05-19] MEDS: RisperiDONE 2 MG TABLET PO SCH ×2 (08:27→16:39)
[2018-05-19] MEDS: DOCUSATE SODIUM 100 MG CAPSULE PO SCH (08:27)
[2018-05-19] MEDS: LORazepam 2 MG TABLET PO PRN (16:39)
[2018-05-19 16:44] VITALS: BP 112/62
[2018-05-19] MEDS: OLANZapine 7.5 MG TABLET PO SCH (20:32)
[2018-05-20 06:27] VITALS: BP 116/80
[2018-05-20 08:11] VITALS: BP 100/61
[2018-05-20] MEDS: RisperiDONE 3 MG TABLET PO SCH ×2 (09:20→16:08)
[2018-05-20] MEDS: LITHIUM CARBONATE 300 MG CAPSULE PO SCH ×2 (09:20→16:08)
[2018-05-20] MEDS: DOCUSATE SODIUM 100 MG CAPSULE PO SCH (09:21)
[2018-05-20] MEDS: OMEPRAZOLE 20 MG CAPSULE PO SCH (09:21)
[2018-05-20 16:09] VITALS: BP 106/70
[2018-05-20] MEDS: OLANZapine 7.5 MG TABLET PO SCH (20:38)
[2018-05-20] MEDS: ZOLPIDEM TARTRATE 10 MG TABLET PO PRN (23:57)
[2018-05-21] VITALS: BP 102/63
[2018-05-21] MEDS: DOCUSATE SODIUM 100 MG CAPSULE PO SCH (08:18)
[2018-05-21] MEDS: LITHIUM CARBONATE 300 MG CAPSULE PO SCH ×2 (08:18→16:20)
[2018-05-21] MEDS: OMEPRAZOLE 20 MG CAPSULE PO SCH (08:19)
[2018-05-21] MEDS: RisperiDONE 3 MG TABLET PO SCH ×2 (08:19→16:20)
[2018-05-21 08:29] VITALS: BP 112/66
[2018-05-21] MEDS: LORazepam 2 MG TABLET PO PRN (12:28)
[2018-05-21] MEDS ORDERED: RISP3TAB44 PO (14:38)
[2018-05-21] MEDS ORDERED: OLAN10TA3 PO (14:38)
[2018-05-21 16:18] VITALS: BP 117/75
[2018-05-21] MEDS: OLANZapine 7.5 MG TABLET PO SCH (20:47)
== END 2018-05-21 21:54 | disposition home or self-care (01) | DRG 750 ==
LOC: B3A 13:22
PROVIDERS: ADMIT Psychiatry & Neurology Psychiatry; ATTEND Psychiatry & Neurology Psychiatry
DX: F25.9 Schizoaffective disorder, unspecified (principal); R45.851 Suicidal ideations; G47.00 Insomnia, unspecified; I10 Essential (primary) hypertension; J45.909 Unspecified asthma, uncomplicated; K59.00 Constipation, unspecified
CPT/HCPCS: 80307; 83036; 84439; 84443

== ENCOUNTER 2018-10-14 13:41 | Emergency (ER) | payer MEDICAID, OTHER ==
[~2018-10-14] VITALS: Ht 154.9 cm; Wt 79.1 kg
[~2018-10-14 13:41] MED LIST changes: +RISP3TAB44 PO
[2018-10-14 15:00] LABS: BASOPHILS % (AUTO) 0.8 % (0.0-2.0); EOSINOPHILS % (AUTO) 1.5 % (1.0-6.0); HEMATOCRIT 39.1 % (36-46); HEMOGLOBIN 12.8 g/dL (12.0-16.0); LYMPHOCYTES % (AUTO) 26.8 % (22.0-44.0); MEAN CORPUSCULAR HEMOGLOBIN 28.3 pg (26.0-34.0); MEAN CORPUSCULAR HGB CONC 32.7 G/dL (31.0-37.0); MEAN CORPUSCULAR VOLUME 87 fL (80-100); MONOCYTES # (AUTO) 0.5 K/uL (0.1-1.0); MONOCYTES % (AUTO) 6.1 % (2.0-9.0); NEUTROPHILS # (AUTO) 4.9 K/uL (1.8-7.7); NEUTROPHILS % (AUTO) 64.8 % (40.0-70.0); PLATELET COUNT (AUTO) 184 K/uL (150-450); RED BLOOD CELL COUNT(AUTO) 4.52 MIL/uL (4.00-5.20); RED CELL DISTRIBUTION WIDTH 13.4 % (11.5-14.5)
[2018-10-14] MEDS ORDERED: SODIUM CHLORIDE 0.9% 100 ML ONE (15:05)
[2018-10-14] MEDS ORDERED: IOVERSOL 320 MG/ML 100 ML VIAL ONE (15:05)
[2018-10-14 15:12] LABS: ANION GAP 10 mmol/L (8-16); CALCIUM, TOTAL 9.1 mg/dL (8.8-10.5); CARBON DIOXIDE 25 mmol/L (22-29); CHLORIDE 104 mmol/L (98-107); GLOMERULAR FILTR. RATE CALC > 60 mL/min (>60); GLUCOSE,RANDOM 85 mg/dL (70-110); POTASSIUM 3.6 mmol/L (3.5-5.1); SODIUM SERUM 139 mmol/L (136-145); UREA NITROGEN, BLOOD 6 mg/dL (7-18)
[2018-10-14 15:23] LABS: ALANINE AMINOTRANSFERASE 62 U/L (12-78); ALKALINE PHOSPHATASE 55 U/L (46-116); ASPARTATE AMINOTRANSFERASE 43 U/L (15-37); BILIRUBIN,TOTAL 0.5 mg/dL (0.1-1.0); HCG,QUANTITATIVE < 1 mIU/mL (0-6); TOTAL PROTEIN, SERUM 7.6 g/dL (6.4-8.2)
[2018-10-14 15:56] LABS: LITHIUM < 0.20 mmol/L (0.60-1.20)
[2018-10-14 16:30] LABS: APPEARANCE,URINE CLEAR (CLEAR); BILIRUBIN,URINE NEGATIVE (NEGATIVE); GLUCOSE, URINE (UA) NEGATIVE (NEGATIVE); KETONES,URINE >=80 mg/dL (NEGATIVE); LEUKOCYTE ESTERASE ,URINE NEGATIVE (NEGATIVE); NITRATE,URINE NEGATIVE (NEGATIVE); OCCULT BLOOD,URINE NEGATIVE (NEGATIVE); PH,URINE 6.5 (5.0-8.0); PROTEIN,URINE NEGATIVE (NEGATIVE); UROBILINOGEN,URINE 0.2 mg/dL (<=1.0)
[2018-10-14 16:39] LABS: BACTERIA,URINE None Seen /HPF (None Seen); RBC,URINE 0-2 /HPF (0-2); SQUAMOUS EPITHELIAL CELL,UR Few /LPF (None Seen)
[2018-10-14 16:55] LABS: AMPHET/METH SCREEN,URINE NEGATIVE (NEGATIVE); BARBITURATE SCREEN, URINE NEGATIVE (NEGATIVE); BENZODIAZEPINES SCREEN,URINE NEGATIVE (NEGATIVE); CANNABINOID SCREEN,URINE NEGATIVE (NEGATIVE); COCAINE SCREEN,URINE NEGATIVE (NEGATIVE); METHADONE SCREEN, URINE NEGATIVE (NEGATIVE); OPIATE SCREEN,URINE NEGATIVE (NEGATIVE)
[2018-10-14 16:57] LABS: PHENCYCLIDINE SCREEN,URINE NEGATIVE (NEGATIVE)
[2018-10-14] MEDS ORDERED: SODIUM CHLORIDE 0.9% 1,000 ML IV ONE (17:15)
[2018-10-14 18:00] VITALS: BP 128/84
== END 2018-10-14 18:07 | disposition home or self-care (01) ==
LOC: EMS 13:42
DX: E86.0 Dehydration (principal); J45.909 Unspecified asthma, uncomplicated; F31.9 Bipolar disorder, unspecified; F17.210 Nicotine dependence, cigarettes, uncomplicated; Z90.49 Acquired absence of other specified parts of digestive tract
CPT/HCPCS: 36415; 74177; 80053; 80178; 80307; 81001; 84702; 84703; 85025; 96360; 99284; J7050; Q9967

== ENCOUNTER 2019-01-31 20:01 | Inpatient (IN) | payer MEDICAID ==
[~2019-01-31] VITALS: Ht 154.9 cm; Wt 74.8 kg
[2019-01-31 20:45] VITALS: BP 145/92
[2019-01-31] MEDS ORDERED: INFLUENZA VIRUS VACCINE QVS 2019-20 (3YR+)/PF 60 MCG/0.5 ML SYRINGE IM ONE (20:45)
[2019-01-31 20:51] VITALS: BP 124/85
[2019-01-31] MEDS: LORazepam 2 MG TABLET PO PRN (21:10)
[2019-01-31] MEDS: ZOLPIDEM TARTRATE 10 MG TABLET PO PRN (21:10)
[2019-02-01] VITALS: BP 122/67
[2019-02-01 06:58] VITALS: BP 122/60
[2019-02-01] MEDS: LORazepam 2 MG TABLET PO PRN ×2 (07:00→16:09)
[2019-02-01 08:17] LABS: BASOPHILS % (AUTO) 0.5 % (0.0-2.0); EOSINOPHILS % (AUTO) 1.6 % (1.0-6.0); HEMATOCRIT 38.4 % (36-46); LYMPHOCYTES # (AUTO) 2.5 K/uL (1.0-4.8); MEAN CORPUSCULAR HEMOGLOBIN 28.8 pg (26.0-34.0); MEAN CORPUSCULAR HGB CONC 33.8 G/dL (31.0-37.0); MEAN CORPUSCULAR VOLUME 85 fL (80-100); MONOCYTES # (AUTO) 0.6 K/uL (0.1-1.0); MONOCYTES % (AUTO) 7.8 % (2.0-9.0); NEUTROPHILS # (AUTO) 4.3 K/uL (1.8-7.7); NEUTROPHILS % (AUTO) 57.1 % (40.0-70.0); PLATELET COUNT (AUTO) 190 K/uL (150-450); RED BLOOD CELL COUNT(AUTO) 4.52 MIL/uL (4.00-5.20); RED CELL DISTRIBUTION WIDTH 13.3 % (11.5-14.5)
[2019-02-01 08:35] LABS: HEMOGLOBIN A1C 5.3 % (4.5-6.2)
[2019-02-01 08:44] LABS: ALANINE AMINOTRANSFERASE 68 U/L (12-78); ALBUMIN 3.9 g/dL (3.4-5.0); ALKALINE PHOSPHATASE 63 U/L (46-116); ANION GAP 8 mmol/L (8-16); ASPARTATE AMINOTRANSFERASE 41 U/L (15-37); BILIRUBIN,TOTAL 0.6 mg/dL (0.1-1.0); CALCIUM, TOTAL 8.8 mg/dL (8.8-10.5); CARBON DIOXIDE 28 mmol/L (22-29); CHLORIDE 103 mmol/L (98-107); CHOL/HDL RATIO 4.1 (3.9-5.7); CHOLESTEROL 171 mg/dL (131-200); FREE T4 (FREE THYROXINE) 1.15 ng/dL (0.76-1.46); GLOMERULAR FILTR. RATE CALC > 60 mL/min (>60); GLUCOSE,RANDOM 98 mg/dL (70-110); HCG,QUANTITATIVE < 1 mIU/mL (0-6); HDL CHOLESTEROL 42 mg/dL (40-60); LDL CHOL (CALC.) 109 mg/dL (0-130); POTASSIUM 3.3 mmol/L (3.5-5.1); SODIUM SERUM 139 mmol/L (136-145); THYROID STIMULATING HORMONE 2.14 uIU/mL (0.36-3.74); TOTAL PROTEIN, SERUM 7.7 g/dL (6.4-8.2); TRIGLYCERIDES 101 mg/dL (15-150); UREA NITROGEN, BLOOD 11 mg/dL (7-18)
[2019-02-01 08:45] VITALS: BP 126/76
[2019-02-01] MEDS ORDERED: BACITRACIN 28.4 GM OINTMENT TP PRN (09:00)
[2019-02-01] MEDS ORDERED: MAG HYDROX/AL HYDROX/SIMETH ES 30 ML SUSPENSION UDCUP PO PRN (09:00)
[2019-02-01] MEDS ORDERED: ALBUTEROL SULFATE HFA 90 MCG/PUFF 8 GM INHALER IH PRN (09:00)
[2019-02-01] MEDS ORDERED: PETROLATUM,WHITE 28 GM JELLY TP PRN (09:00)
[2019-02-01] MEDS ORDERED: ONDANSETRON HCL 4 MG TABLET PO PRN (09:00)
[2019-02-01] MEDS ORDERED: DOCUSATE SODIUM 100 MG CAPSULE PO PRN (09:00)
[2019-02-01] MEDS ORDERED: LOPERAMIDE HCL 2 MG CAPSULE PO PRN (09:00)
[2019-02-01] MEDS ORDERED: OMEPRAZOLE 20 MG CAPSULE PO PRN (09:00)
[2019-02-01] MEDS ORDERED: BENZOCAINE/MENTHOL LOZENGE MM PRN (09:00)
[2019-02-01] MEDS ORDERED: CloNIDine HCL 0.1 MG TABLET PO PRN (09:00)
[2019-02-01] MEDS ORDERED: ACETAMINOPHEN 325 MG TABLET PO PRN (09:00)
[2019-02-01] MEDS ORDERED: POTASSIUM CHLORIDE 20 MEQ ER TABLET PO ONE (09:15)
[2019-02-01] MEDS: HALOPERIDOL 5 MG TABLET PO PRN (10:18)
[2019-02-01 16:12] VITALS: BP 152/109
[2019-02-01] MEDS: ZOLPIDEM TARTRATE 10 MG TABLET PO PRN (20:52)
[2019-02-02 03:56] VITALS: BP 125/68
[2019-02-02 08:01] VITALS: BP 127/82
[2019-02-02] MEDS: HALOPERIDOL 5 MG TABLET PO PRN (08:15)
[2019-02-02] MEDS: NICOTINE 21 MG/24 HOUR PATCH TD SCH (08:15)
[2019-02-02] MEDS: LORazepam 2 MG TABLET PO PRN (08:16)
[2019-02-02 08:51] LABS: ANION GAP 10 mmol/L (8-16); CALCIUM, TOTAL 8.6 mg/dL (8.8-10.5); CARBON DIOXIDE 25 mmol/L (22-29); CHLORIDE 103 mmol/L (98-107); CREATININE 0.68 mg/dL (0.60-1.30); GLOMERULAR FILTR. RATE CALC > 60 mL/min (>60); GLUCOSE,RANDOM 92 mg/dL (70-110); SODIUM SERUM 138 mmol/L (136-145); UREA NITROGEN, BLOOD 8 mg/dL (7-18)
[2019-02-02] MEDS ORDERED: LORazepam 2 MG/ML VIAL IM ONE (12:45)
[2019-02-02] MEDS ORDERED: HALOPERIDOL LACTATE 5 MG/ML VIAL IM ONE (12:45)
[2019-02-02] MEDS: OLANZapine 7.5 MG TABLET PO SCH (20:31)
[2019-02-03 06:46] VITALS: BP 120/65
[2019-02-03 08:16] VITALS: BP 121/65
[2019-02-03] MEDS: LITHIUM CARBONATE 300 MG CAPSULE PO SCH ×2 (08:21→16:02)
[2019-02-03] MEDS: LORazepam 2 MG TABLET PO PRN (08:21)
[2019-02-03] MEDS: NICOTINE 21 MG/24 HOUR PATCH TD SCH (08:22)
[2019-02-03] MEDS: MAGNESIUM HYDROXIDE SUSPENSION 30 ML UDCUP PO PRN (08:42)
[2019-02-03 16:07] VITALS: BP 102/61
[2019-02-03] MEDS: OLANZapine 7.5 MG TABLET PO SCH (20:28)
[2019-02-04 08:11] VITALS: BP 118/74
[2019-02-04] MEDS: LITHIUM CARBONATE 300 MG CAPSULE PO SCH ×2 (08:33→16:41)
[2019-02-04] MEDS: NICOTINE 21 MG/24 HOUR PATCH TD SCH (09:00)
[2019-02-04] MEDS: LORazepam 2 MG TABLET PO PRN ×2 (10:10→17:46)
[2019-02-04] MEDS: HALOPERIDOL 5 MG TABLET PO PRN ×2 (10:10→17:46)
[2019-02-04 16:24] VITALS: BP 103/58
[2019-02-04] MEDS: OLANZapine 7.5 MG TABLET PO SCH (20:44)
[2019-02-05 06:20] VITALS: BP 112/64
[2019-02-05] MEDS: LITHIUM CARBONATE 300 MG CAPSULE PO SCH ×2 (08:07→16:07)
[2019-02-05 08:11] VITALS: BP 107/66
[2019-02-05] MEDS: IBUPROFEN 600 MG TABLET PO PRN ×2 (08:11→18:36)
[2019-02-05 08:22] VITALS: BP 107/66
[2019-02-05] MEDS: NICOTINE 21 MG/24 HOUR PATCH TD SCH (09:00)
[2019-02-05 16:22] VITALS: BP 109/73
[2019-02-05 18:32] VITALS: BP 133/84
[2019-02-05] MEDS: OLANZapine 7.5 MG TABLET PO SCH (20:18)
[2019-02-06 06:20] VITALS: BP 113/70
[2019-02-06] MEDS: LITHIUM CARBONATE 300 MG CAPSULE PO SCH ×2 (08:04→16:40)
[2019-02-06] MEDS: LORazepam 2 MG TABLET PO PRN ×2 (08:04→16:41)
[2019-02-06] MEDS: NICOTINE 21 MG/24 HOUR PATCH TD SCH (08:05)
[2019-02-06 08:08] VITALS: BP 132/65
[2019-02-06 09:11] LABS: APPEARANCE,URINE CLEAR (CLEAR); BILIRUBIN,URINE NEGATIVE (NEGATIVE); GLUCOSE, URINE (UA) NEGATIVE (NEGATIVE); KETONES,URINE NEGATIVE (NEGATIVE); LEUKOCYTE ESTERASE ,URINE TRACE (NEGATIVE); NITRATE,URINE NEGATIVE (NEGATIVE); OCCULT BLOOD,URINE NEGATIVE (NEGATIVE); PH,URINE 7.5 (5.0-8.0); PROTEIN,URINE NEGATIVE (NEGATIVE); UROBILINOGEN,URINE 0.2 mg/dL (<=1.0)
[2019-02-06 09:16] LABS: AMPHET/METH SCREEN,URINE NEGATIVE (NEGATIVE); BARBITURATE SCREEN, URINE NEGATIVE (NEGATIVE); BENZODIAZEPINES SCREEN,URINE NEGATIVE (NEGATIVE); CANNABINOID SCREEN,URINE NEGATIVE (NEGATIVE); COCAINE SCREEN,URINE NEGATIVE (NEGATIVE); METHADONE SCREEN, URINE NEGATIVE (NEGATIVE); OPIATE SCREEN,URINE NEGATIVE (NEGATIVE); PHENCYCLIDINE SCREEN,URINE NEGATIVE (NEGATIVE)
[2019-02-06 09:22] LABS: BACTERIA,URINE None Seen /HPF (None Seen); RBC,URINE None Seen /HPF (0-2); SQUAMOUS EPITHELIAL CELL,UR Few /LPF (None Seen); WBC,URINE 0-2 /HPF (0-5)
[2019-02-06 16:05] VITALS: BP 131/69
[2019-02-06] MEDS: OLANZapine 7.5 MG TABLET PO SCH (20:20)
[2019-02-07 05:24] VITALS: BP 110/65
[2019-02-07] MEDS: LITHIUM CARBONATE 300 MG CAPSULE PO SCH ×2 (08:11→16:47)
[2019-02-07] MEDS: NICOTINE 21 MG/24 HOUR PATCH TD SCH (08:13)
[2019-02-07 08:28] VITALS: BP 117/61
[2019-02-07 16:24] VITALS: BP 126/74
[2019-02-07] MEDS: OLANZapine 7.5 MG TABLET PO SCH (21:21)
[2019-02-08 06:11] VITALS: BP 121/68
[2019-02-08 08:03] VITALS: BP 116/69
[2019-02-08] MEDS: LITHIUM CARBONATE 300 MG CAPSULE PO SCH ×2 (08:25→16:32)
[2019-02-08] MEDS: NICOTINE 21 MG/24 HOUR PATCH TD SCH (08:27)
[2019-02-08] MEDS: MAGNESIUM HYDROXIDE SUSPENSION 30 ML UDCUP PO PRN (12:38)
[2019-02-08] MEDS: LORazepam 2 MG TABLET PO PRN (12:38)
[2019-02-08 16:07] VITALS: BP 130/98
[2019-02-08] MEDS ORDERED: NICOTINE 21 MG/24 HOUR PATCH TD PRN (19:45)
[2019-02-08] MEDS: OLANZapine 7.5 MG TABLET PO SCH (20:29)
[2019-02-08] MEDS: ZOLPIDEM TARTRATE 10 MG TABLET PO PRN (21:55)
[2019-02-09 05:13] VITALS: BP 104/69
[2019-02-09 08:09] VITALS: BP 108/68
[2019-02-09] MEDS: LITHIUM CARBONATE 300 MG CAPSULE PO SCH ×3 (08:30→16:16)
[2019-02-09] MEDS: LORazepam 2 MG TABLET PO PRN (08:31)
[2019-02-09 16:25] VITALS: BP 120/71
[2019-02-09] MEDS: ZOLPIDEM TARTRATE 10 MG TABLET PO PRN (20:18)
[2019-02-09] MEDS: OLANZapine 7.5 MG TABLET PO SCH (20:19)
[2019-02-10 06:53] VITALS: BP 111/65
[2019-02-10] MEDS: LITHIUM CARBONATE 300 MG CAPSULE PO SCH ×3 (08:05→16:09)
[2019-02-10 08:06] VITALS: BP 111/68
[2019-02-10 11:30] VITALS: BP 108/67
[2019-02-10 16:01] VITALS: BP 123/76
[2019-02-10] MEDS: OLANZapine 7.5 MG TABLET PO SCH (20:23)
[2019-02-10] MEDS: ZOLPIDEM TARTRATE 10 MG TABLET PO PRN (20:33)
[2019-02-11] VITALS: BP 108/67
[2019-02-11 08:11] VITALS: BP 124/65
[2019-02-11] MEDS: LITHIUM CARBONATE 300 MG CAPSULE PO SCH ×3 (08:15→16:04)
[2019-02-11] MEDS ORDERED: LITH300C3 PO (13:15)
[2019-02-11 16:24] VITALS: BP 118/67
[2019-02-13] MEDS ORDERED: RisperiDONE MICROSPHERES 50 MG/2 ML SYRINGE IM SCH (09:00)
== END 2019-02-11 16:50 | disposition home or self-care (01) | DRG 750 ==
LOC: B3A 20:25
PROVIDERS: ADMIT Psychiatry & Neurology Psychiatry; ATTEND Psychiatry & Neurology Psychiatry
DX: F20.0 Paranoid schizophrenia (principal); R45.851 Suicidal ideations; G47.00 Insomnia, unspecified; I10 Essential (primary) hypertension; J45.909 Unspecified asthma, uncomplicated; K59.00 Constipation, unspecified
CPT/HCPCS: 80307; 83036; 84439; 84443; 90686; J1630; J2060; Q0162

== ENCOUNTER 2022-06-01 23:10 | Emergency (ER) | payer MEDICAID, OTHER ==
[~2022-06-01] VITALS: Ht 154.9 cm; Wt 84.0 kg
[~2022-06-01 23:10] MED LIST changes: -OLAN10TA3 PO; +OLAN10TA74 PO; -RISP3TAB44 PO
[2022-06-01 23:13] VITALS: BP 134/92
[2022-06-01] MEDS ORDERED: ATOR40TA28 PO (23:20)
[2022-06-01] MEDS ORDERED: AMOX500C2 PO (23:20)
[2022-06-01] MEDS ORDERED: ARIP10TA38 PO (23:20)
[2022-06-01] MEDS ORDERED: DIVA500T53 PO (23:20)
[2022-06-01 23:38] LABS: BASOPHILS % (AUTO) 0.9 % (0.0-2.0); EOSINOPHILS % (AUTO) 3.5 % (1.0-6.0); HEMATOCRIT 38.9 % (36-46); HEMOGLOBIN 12.6 g/dL (12.0-16.0); LYMPHOCYTES # (AUTO) 2.7 K/uL (1.0-4.8); MEAN CORPUSCULAR HEMOGLOBIN 26.6 pg (26.0-34.0); MEAN CORPUSCULAR HGB CONC 32.3 G/dL (31.0-37.0); MEAN CORPUSCULAR VOLUME 82 fL (80-100); MONOCYTES # (AUTO) 0.6 K/uL (0.1-1.0); MONOCYTES % (AUTO) 6.4 % (2.0-9.0); NEUTROPHILS # (AUTO) 5.3 K/uL (1.8-7.7); NEUTROPHILS % (AUTO) 59.2 % (40.0-70.0); PLATELET COUNT (AUTO) 250 K/uL (150-450); RED BLOOD CELL COUNT(AUTO) 4.72 MIL/uL (4.00-5.20); RED CELL DISTRIBUTION WIDTH 15.2 % (11.5-14.5)
[2022-06-01 23:40] LABS: ANION GAP 7 mmol/L (8-16); CALCIUM, TOTAL 8.6 mg/dL (8.8-10.5); CARBON DIOXIDE 27 mmol/L (22-29); CHLORIDE 104 mmol/L (98-107); CREATININE 0.73 mg/dL (0.60-1.30); GLOMERULAR FILTR. RATE CALC > 60 mL/min (>60); GLUCOSE,RANDOM 146 mg/dL (70-110); POTASSIUM 3.7 mmol/L (3.5-5.1); SODIUM SERUM 138 mmol/L (136-145); UREA NITROGEN, BLOOD 8 mg/dL (7-18)
[2022-06-01 23:44] LABS: APPEARANCE,URINE CLEAR (CLEAR); BILIRUBIN,URINE NEGATIVE (NEGATIVE); GLUCOSE, URINE (UA) NEGATIVE (NEGATIVE); KETONES,URINE NEGATIVE (NEGATIVE); LEUKOCYTE ESTERASE ,URINE TRACE (NEGATIVE); NITRATE,URINE NEGATIVE (NEGATIVE); OCCULT BLOOD,URINE TRACE (NEGATIVE); PROTEIN,URINE TRACE mg/dL (NEGATIVE); SPECIFIC GRAVITIY, URINE 1.024 (1.003-1.030); UROBILINOGEN,URINE <=1.0 mg/dL (<=1.0)
[2022-06-01 23:53] LABS: ALANINE AMINOTRANSFERASE 79 U/L (12-78); ALKALINE PHOSPHATASE 81 U/L (46-116); ASPARTATE AMINOTRANSFERASE 41 U/L (15-37); BILIRUBIN,TOTAL 0.2 mg/dL (0.1-1.0); HCG,QUANTITATIVE < 1 mIU/mL (0-6); TOTAL PROTEIN, SERUM 7.8 g/dL (6.4-8.2)
[2022-06-02 00:03] LABS: BACTERIA,URINE None Seen /HPF (None Seen); RBC,URINE 0-2 /HPF (0-2); WBC,URINE 0-2 /HPF (0-5)
[2022-06-02 00:04] LABS: SQUAMOUS EPITHELIAL CELL,UR Many /LPF (None Seen)
== END 2022-06-02 04:20 | disposition home or self-care (01) ==
LOC: EMS 23:21
DX: N39.0 Urinary tract infection, site not specified (principal); J45.909 Unspecified asthma, uncomplicated; F31.9 Bipolar disorder, unspecified; R56.9 Unspecified convulsions; F17.210 Nicotine dependence, cigarettes, uncomplicated; Z90.49 Acquired absence of other specified parts of digestive tract
CPT/HCPCS: 80053; 81001; 84702; 85025; 99283

== ENCOUNTER 2022-08-18 20:46 | Emergency (ER) | payer OTHER ==
[~2022-08-18] VITALS: Ht 152.4 cm; Wt 88.2 kg
[~2022-08-18 20:46] MED LIST changes: +AMOX500C2 PO; +ARIP10TA38 PO; +ATOR40TA28 PO; +DIVA500T53 PO; -LITH300C3 PO; -OLAN10TA74 PO
[2022-08-18 20:48] VITALS: BP 155/91
[2022-08-18] MEDS ORDERED: ERYTHROMYCIN 0.5% 3.5 GM TUBE OPHTHALMIC OINTMENT OS ONE (22:15)
== END 2022-08-18 22:38 | disposition home or self-care (01) ==
LOC: EMS 20:47
DX: H00.011 Hordeolum externum right upper eyelid (principal); J45.909 Unspecified asthma, uncomplicated; F31.9 Bipolar disorder, unspecified; F17.210 Nicotine dependence, cigarettes, uncomplicated; Z90.89 Acquired absence of other organs
CPT/HCPCS: 99283